=== PATIENT | female | born 1945 | race Hispanic/Latino ===

== ENCOUNTER 2018-09-13 14:50 | Outpatient (CLI) | payer MEDICARE | END 2018-09-13 14:51 | disposition home or self-care (01) | LOC: LABHHL 14:50 | PROVIDERS: ATTEND Surgery | DX: C50.911 Malignant neoplasm of unspecified site of right female breast (principal) | CPT/HCPCS: 88305; 88341; 88342 ==

== ENCOUNTER 2018-10-19 06:31 | Day surgery (SDC) | payer MEDICARE ==
[2018-10-19] MEDS ORDERED: XYLOCAINE 1% 20 mL ONE ×2 (07:14→07:33)
[2018-10-19] MEDS ORDERED: MARCAINE 0.25% INFILTRATI ONE (07:14)
[2018-10-19] MEDS ORDERED: NACL 0.9% 100 ML ONE (07:14)
[2018-10-19] MEDS ORDERED: HEPARIN 10,000 UNITS/10 ML ONE (07:14)
--- NOTE | 2018-10-19 07:36 | Anesthesia Consultation ---
Anesthesia Consult and Med Hx Date of service: 10/19/18 - Airway Anesthetic Teeth Evaluation: Good ROM Head & Neck: Adequate Mental/Hyoid Distance: Adequate Mallampati Class: Class II Intubation Access Assessment: Good - Pulmonary Exam CTA: Yes - Cardiac Exam Cardiac Exam: RRR - Pre-Operative Health Status ASA Pre-Surgery Classification: ASA3 Proposed Anesthetic Plan: General - Cardiovascular System Hx Hypertension: Yes (2006) Hx Coronary Artery Disease: Yes Hx Heart Attack/AMI: Yes (06/30/09) - Central Nervous System Hx Psychiatric Problems: No - Other Systems Hx Alcohol Use: Yes (RARE(SPECIAL OCCA)) Hx Substance Use: No Hx Cancer: Yes
--- NOTE | 2018-10-19 07:36 | Anesthesia Day of Surgery ---
Anesthesia Day of Surgery - Day of Surgery Patient Examined: Yes Patient H&P Reviewed: Yes Patient is NPO: Yes
[2018-10-19] MEDS ORDERED: LACTATED RINGERS 1,000 ML IV SCH (07:47)
[2018-10-19] MEDS ORDERED: VANCOMYCIN/NS 1 GM/250 ML 1 GM/250 ML BAG IV NR (08:00)
[2018-10-19] MEDS ORDERED: XYLOCAINE 1% 20 mL INFILTRATI ONE (08:00)
[2018-10-19] MEDS ORDERED: ZEMURON IV ONE (08:17)
[2018-10-19] MEDS ORDERED: SUBLIMAZE ONE (08:17)
[2018-10-19] MEDS ORDERED: XYLOCAINE MPF 2% ONE (08:17)
[2018-10-19] MEDS ORDERED: DIPRIVAN 10 MG/ML IV ONE (08:17)
[2018-10-19] MEDS ORDERED: DECADRON IV NR (09:00)
[2018-10-19] MEDS ORDERED: SUBLIMAZE IV NR (09:00)
[2018-10-19] MEDS ORDERED: VERSED IV NR (09:00)
[2018-10-19] MEDS ORDERED: NEURONTIN PO NR ×2 (09:00)
[2018-10-19] MEDS ORDERED: MARCAINE-EPI 0.5%-1:200,000 INFILTRATI NR (09:00)
--- NOTE | 2018-10-19 09:28 | Mammography Report ---
NEEDLE LOCALIZATION AND HOOKWIRE PLACEMENT RIGHT BREAST:10/19/18 CLINICAL: Right breast cancer. COMPARISON: 09/12/18 FINDINGS: Using mammographic guidance, 1% lidocaine local anesthesia and sterile technique, a 7.5-cm Tucker needle with a hookwire was placed from a lateral approach to localize a known cancer with a biopsy clip. The hookwire was deployed and the needle was removed. Satisfactory placement was confirmed on two orthogonal views. The patient tolerated the procedure well and there were no apparent complications. IMPRESSION: Uncomplicated hookwire placement right breast.
[2018-10-19] MEDS ORDERED: WATER FOR IRRIG STERILE IR ONE (11:42)
[2018-10-19] MEDS ORDERED: LACTATED RINGERS 1,000 ML ONE (13:55)
[2018-10-19] MEDS ORDERED: BLOXIVERZ ONE (14:14)
[2018-10-19] MEDS ORDERED: ROBINUL ONE ×2 (14:14→14:15)
[2018-10-19] MEDS ORDERED: ZOFRAN ONE (14:15)
--- NOTE | 2018-10-19 15:20 | Short Stay Summary ---
Short Stay Documentation Date of service: 10/19/18 - History H&P: obtained from office - Allergies and Medications Current Medications: Allergies Penicillins Allergy (Verified 10/17/18 09:50) Rash Sulfa (Sulfonamide Antibiotics) Allergy (Verified 10/17/18 09:50) Rash Home Medications Medication Instructions Recorded Confirmed Last Taken Type Aflibercept [Eylea] 2 mg IO Q8W 10/17/18 10/17/18 Unknown History Aspirin [Aspirin BABY CHEW TAB] 81 mg PO QDAY 10/17/18 10/19/18 10/17/18 History Evolocumab [Repatha Sureclick] 140 mg SQ Q2W 10/17/18 10/19/18 10/14/18 History Lactobacillus Rhamnosus GG 1 each QDAY 10/17/18 10/19/18 10/18/18 History [Culturelle] Losartan Potassium 100 mg PO QDAY 10/17/18 10/19/18 10/18/18 History Nebivolol HCl [Bystolic] 10 mg PO QDAY 10/17/18 10/19/18 10/19/18 History Nitroglycerin 0.4 mg PO Q5MIN PRN 10/17/18 10/17/18 Unknown History Omeprazole Magnesium [PriLOSEC Otc] 20 mg PO QDAY 10/17/18 10/19/18 10/19/18 History Vits A,C,E/Lutein/Minerals 1 each PO DAILY 10/17/18 10/17/18 Unknown History [Ocuvite with Lutein Tablet] Zolpidem [Ambien] 10 mg PO QHS PRN 10/17/18 10/19/18 10/18/18 History amLODIPine [Norvasc] 10 mg PO QHS 10/17/18 10/19/18 10/18/18 History hydroCHLOROthiazide [HCTZ] 12.5 mg PO DAILY 10/17/18 10/19/18 10/18/18 History Active Medications Bupivacaine HCl/Epinephrine Bitart (Marcaine-Epi 0.5%-1:200,000) 30 ml INFILTRATI ONCE NR Stop: 10/19/18 18:00 Dexamethasone (Decadron) 4 mg IV ONCE NR Stop: 10/19/18 18:00 Fentanyl (Sublimaze) 100 mcg IV ONCE NR Stop: 10/19/18 18:00 Last Admin: 10/19/18 10:25 Dose: 50 mcg Documented by: Gabapentin (Neurontin) 600 mg PO PREOP NR Stop: 10/19/18 18:00 Last Admin: 10/19/18 09:05 Dose: 600 mg Documented by: Lactated Ringer's (Lactated Ringers) 1,000 mls @ 100 mls/hr IV DIRECT ANA Stop: 10/19/18 23:59 Last Admin: 10/19/18 09:00 Dose: 100 mls/hr Documented by: Midazolam HCl (Versed) 2 mg IV PREOP NR Stop: 10/19/18 23:59 Last Admin: 10/19/18 10:25 Dose: 2 mg Documented by: - Brief post op/procedure progress note Date of procedure: 10/19/18 Pre-op diagnosis: Right breast cancer of the lower outer quadrant Post-op diagnosis: same Procedure: Right needle localization partial mastectomy and SLNB Anesthesia: GETA Findings: Wire and mass present within specimen; x3 SLNs Surgeon: NEYDA BENDER Estimated blood loss: minimal Pathology: list (right partial mastectomy and SLN) Specimen disposition: to lab Condition: stable - Disposition Condition at discharge: Good Disposition: [id number] TO HOME OR SELFCARE Short Stay Discharge Plan Activity: other (no heavy lifting) Diet: regular Wound: keep clean and dry (may shower in 48 hours; no baths, pools or lakes) Follow up with: VENICE PADRON MD [Primary Care Provider] - 7 Days NEYDA BENDER MD [Staff Physician] - 7 Days Prescriptions: HYDROcodone/APAP 5-325 [Omro 5/325] 1 each PO Q6HR PRN #30 tablet PRN Reason: Pain
--- NOTE | 2018-10-19 15:25 | Operative Report ---
Operative Report Operative Report: Operative Report: October 19, 2018 Preoperative diagnosis: Right breast cancer of the lower outer quadrant Postoperative diagnosis: Same Procedure: Right needle localization partial mastectomy of the lower outer quadrant and SLNB Surgeon: Keyla Tamayo MD Anesthesia: General Findings: Right wire and clip present within radiograph specimen; x 3 SLNs Complications: None EBL: Minimal Disposition: PACU in good condition Indications for operative procedure: This is a 73 year old lady with newly diagnosed right breast cancer of the lower outer quadrant, Stage I [id number] ER/TN positive. Recommendations are to proceed with breast conservation. She understands the role of adjuvant radiation therapy and Oncotype DX will be obtained by medical oncology. She wished to proceed with the above procedure. Procedure in detail: The patient was taken to radiology for wire placement for localization of known area of cancer. Anesthesia placed right pectoral block. Patient was then taken to the operating room. Gen. anesthesia was administered. The right nipple was injected with radioisotope. Right breast and axilla were prepped and draped in the normal sterile operative fashion. The wire was identified. Timeout was performed. Gamma probe was inserted into the axilla. The area of hot spot was identified. A right axillary incision was made with a 15 blade knife with dissection taken down to the subcutaneous tissues. The axillary fascia was opened with the Bovie cautery. 3 SLNs were identified. All remaining counts were less than 10% of the highest count. Lymph node was sent to pathology for permanent processing. Hemostasis was obtained in the right axillary cavity. Axillary cavity was appropriately irrigated and suctioned. Hemostasis was noted. Axillary fascia was approximated and closed using interrupted 3-0 Vicryl and the skin brought together and closed using a running 4-0 Monocryl followed by skin affix. Attention was then taken towards the right breast. Lateral breast incision around the 7:00 position was made with a 15 blade knife and dissection taken down to subcutaneous tissues. First began raising of the superior flap with removal of the wire from the skin with dissection take down to the pectoralis muscle, followed by raising of the inferior flap, medial flap and lateral flap with all flaps taken down to the pectoralis muscle. The breast area of concern was appropriately removed posteriorly from the pectoralis muscle with the aid of the Bovie cautery. The wire was not encountered. Specimen was marked and then sent to pathology and radiology; radiograph specimen with wire and clip present. Breast cavity was irrigated and hemostasis was obtained. The posterior deep breast tissues were approximated and closed using interrupted 3-0 Vicryl. The subcutaneous tissues were approximated and closed using interrupted 3-0 Vicryl followed by closing of the skin with a running 4-0 Monocryl and skin affix. The patient tolerated surgery very well and she was awaken from anesthesia without any complication and transported to PACU in good condition.
--- NOTE | 2018-10-19 15:33 | Mammography Report ---
SPECIMEN RADIOGRAPH RIGHT BREAST: 10/19/18 06:31:00 CLINICAL: Surgical excision of a known cancer. FINDINGS: The targeted mass with a localizer clip and a hookwire are identified within the specimen. IMPRESSION: Excision of the targeted lesion.
[2018-10-19] MEDS ORDERED: NORCO 5/325 PO PRN (16:12)
[2018-10-19 16:29] VITALS: BP 124/54
== END 2018-10-19 17:10 | disposition home or self-care (01) ==
LOC: OR 06:31
PROVIDERS: ATTEND Surgery
DX: D36.0 Benign neoplasm of lymph nodes (principal); C50.911 Malignant neoplasm of unspecified site of right female breast; R92.0 Mammographic microcalcification found on diagnostic imaging of breast; I25.10 Atherosclerotic heart disease of native coronary artery without angina pectoris; E78.00 Pure hypercholesterolemia, unspecified; I10 Essential (primary) hypertension; K21.9 Gastro-esophageal reflux disease without esophagitis; M19.90 Unspecified osteoarthritis, unspecified site; Z80.3 Family history of malignant neoplasm of breast; Z88.2 Allergy status to sulfonamides; Z88.0 Allergy status to penicillin; Z79.82 Long term (current) use of aspirin; Z79.899 Other long term (current) drug therapy; Z98.41 Cataract extraction status, right eye; Z95.5 Presence of coronary angioplasty implant and graft; Z90.49 Acquired absence of other specified parts of digestive tract; Z90.710 Acquired absence of both cervix and uterus; Z98.890 Other specified postprocedural states; Z72.89 Other problems related to lifestyle; Z85.89 Personal history of malignant neoplasm of other organs and systems
CPT/HCPCS: 19281; 19301; 38525; 38792; 64450; 76098; 78800; 88307; 88333; 88342; A9541; J1100; J1644; J2250; J2405; J2704; J2710; J3010; J3370; J7120